=== PATIENT | male | born 1995 | race Caucasian/White ===

== ENCOUNTER 2021-01-02 02:45 | Emergency (ER) | payer BC ==
[~2021-01-02] VITALS: Ht 185.4 cm; Wt 131.5 kg
[2021-01-02 02:50] VITALS: BP 137/89
--- NOTE | 2021-01-02 02:50 | NUR ---
TO [facility] AMBULATORY
[2021-01-02] MEDS ORDERED: CIPR7.5S OT (03:08)
[2021-01-02] MEDS ORDERED: IBUP-2218 PO (03:08)
--- NOTE | 2021-01-02 03:30 | NUR ---
d/c with VSS. d/c education given. opportunity to ask questions given and answered. rx of motrin and ciprodex given.
[2021-01-02] MEDS ORDERED: AMOX-1000 PO (19:07)
== END 2021-01-02 03:30 | disposition home or self-care (01) ==
LOC: MED 02:45
DX: H60.91 Unspecified otitis externa, right ear (principal); Z79.899 Other long term (current) drug therapy
CPT/HCPCS: 99283